=== PATIENT | female | born 1970 | race African-American/Black ===

== ENCOUNTER 2019-09-19 07:34 | Inpatient (IN) | payer BC, OTHER ==
--- NOTE | 2019-09-17 10:09 | NUR ---
*-* CASE MANAGEMENT NOTES *-* PRECERT REF# [id number] 1DAY LOS CPT 12702 NCM UNASSIGNED PLS FAX CLINICALS TO [phone] PER IRIS REP [phone] CALL REF# [id number]
[2019-09-19] VITALS (15 sets, daily range): BP systolic 102–136; BP diastolic 56–84
[~2019-09-19] VITALS: Ht 157.5 cm; Wt 80.9 kg
[~2019-09-19 07:34] MED LIST: NS Irrig 1000ml ONE; Sterile Water Irrig 1000ml IRRIG ONE; cefOXitin Sod 2 GM in D5W 110 ML IVPB ONE
[2019-09-19] MEDS ORDERED: IRON 100 PLUS1 EACH PO (08:22)
[2019-09-19] MEDS ORDERED: AMARYL1 MG ORAL (08:22)
[2019-09-19] MEDS ORDERED: METFORMIN HCL500 M1 ORAL (08:22)
[2019-09-19] MEDS ORDERED: fentaNYL 100 mcg/2 mL IV ONE (08:28)
[2019-09-19] MEDS ORDERED: Midazolam 2mg/2ml Inj ONE (08:29)
[2019-09-19] MEDS ORDERED: Propofol 200mg/20ml IV ONE (08:32)
[2019-09-19] MEDS ORDERED: Lidocaine 1% MPF 10mg/ml 5ml ONE (08:32)
[2019-09-19] MEDS ORDERED: Rocuronium Bromide 50mg/5ml Inj IV ONE (09:19)
[2019-09-19] MEDS ORDERED: Succinylcholine 20mg/ml 10ml vial ONE (09:19)
[2019-09-19] MEDS ORDERED: Ropivacaine 5mg/ml Vial 30ml INJ ONE (09:28)
[2019-09-19] MEDS ORDERED: Duramorph PF 5mg/10ml amp ONE (09:29)
--- NOTE | 2019-09-19 10:04 | NUR ---
CASE MANAGEMENT:REVIEW 49 YR OLD FEMALE HERE FOR ELECTIVE SURGERY SI: UTERINE FIBROIDS 97.5 87 16 136/84 100% ON RA IS: TO SURGERY FOR: HYSTERECTOMY W/BILATERAL SALPINGECTOMY : CURRENTLY IN SURGERY INTERQUAL CRITERIA MET
[2019-09-19] MEDS ORDERED: LR 1000ml 1,000 ML IVLG SCH (10:32)
--- NOTE | 2019-09-19 10:32 | Anethesia Preoperative Eval ---
Anesthesia Pre-op PMH/ROS General Date of Evaluation: Sep 19, 2019 Time of Evaluation: 09:20 Anesthesiologist: Dario ASA Score: ASA 2 Mallampati Score Class I : Soft palate, uvula, fauces, pillars visible Class II: Soft palate, uvula, fauces visible Class III: Soft palate, base of uvula visible Class IV: Only hard plate visible Mallampati Classification: Class II Surgeon: Shellie Diagnosis: Symptomatic uterine fibroids Surgical Procedure: Abdominal hysterectomy Anesthesia History: none Family History: no anesthesia problems Allergies: Coded Allergies: No Known Allergies (Unverified , 09/19/19) Medications: see eMAR Patient NPO?: Yes NPO Date: Sep 18, 2019 NPO Time: 2344 Past Medical History Cardiovascular: Denies: HTN, CAD, MS, valve dz, arrhythmia, other Pulmonary: Denies: asthma, COPD, GILLIAN, other Gastrointestinal/Genitourinary: Reports: GERD; Denies: CRI, ESRD, other Neurologic/Psychiatric: Denies: dementia, CVA, depression/anxiety, TIA, other Endocrine: Reports: DM - poorly controled; Denies: hypothyroidism, steroids, other HEENT: Denies: cataract (L), cataract (R), glaucoma, WIYOT (L), WIYOT (R), other Musculoskeletal/Integumentary: Denies: OA, RA, DJD, DDD, edema, other Other: obesity PMH Narrative: as above PSxH Narrative: x4, D&C Anesthesia Pre-op Phys. Exam Physician Exam Last Vital Signs Date Time Temp Pulse Resp B/P (MAP) Pulse Ox O2 Delivery O2 Flow Rate FiO2 09/19/19 08:31 Room Air 09/19/19 08:19 97.5 87 16 136/84 (101) 100 Constitutional: NAD Neurologic: CN 2-12 intact Cardiovascular: RRR, no M/R/G Respiratory: CTA Gastrointestinal: other - obesity Airway Exam Mallampati Score: Class II MO: limited Neck: short ROM: full Teeth: missing, other - mild paradontosis Dentures: no upper, no lower Anesthesia Pre-op A/P Labs see chart Accucheck 271 at admission Urine Test Test 09/19/19 08:00 Urine HCG, Qualitative Negative (NEGATIVE) Studies Pre-op Studies: EKG - SR Risk Assessment & Plan Assessment: ASA 2 Plan: GA with ETT Intrathecal morphine for postop pain control Status Change Before Surgery: No Pre-Antibiotics Drug: Ancef 2gr. Given Within 1 Hr of Incision: Yes Time Given: 10:12 Vinnie Bishop MD Sep 19, 2019 10:32
[2019-09-19] MEDS ORDERED: DiphenhydrAMINE 50mg/ml Inj IVP PRN (10:45)
[2019-09-19] MEDS ORDERED: Ketorolac 30mg Inj IV PRN (10:45)
[2019-09-19] MEDS ORDERED: Acetaminophen (Non formulary) 100 ML IV ONE (10:45)
[2019-09-19] MEDS ORDERED: Hydromorphone 0.5mg/0.5ml inj IVP PRN (10:45)
[2019-09-19] MEDS ORDERED: Meperidine 50mg/ml Inj(FOR RIGORS ONLY) IVP PRN (10:45)
[2019-09-19] MEDS ORDERED: Metoclopramide 10mg/2ml Inj IVP PRN (10:45)
[2019-09-19] MEDS ORDERED: Glycopyrrolate 0.2mg/ml 1ml Vial ONE (11:29)
[2019-09-19] MEDS ORDERED: Ketorolac 30mg Inj ONE (11:29)
[2019-09-19] MEDS ORDERED: HYDROmorphone 1mg/ml Carpuject IVP PRN (12:45)
[2019-09-19] MEDS ORDERED: Zolpidem 5mg tab ORAL PRN (12:45)
--- NOTE | 2019-09-19 12:54 | Immediate Post-Op Evaluation ---
Immediate Post-Op Evalulation Immediate Post-Op Evalulation Procedure: Open supracervical hysterectomy Date of Evaluation: Sep 19, 2019 Time of Evaluation: 12:53 IV Fluids: 1800 Blood Products: none Estimated Blood Loss: 250 Urinary Output: 200 Blood Pressure Systolic: 113 Blood Pressure Diastolic: 63 Pulse Rate: 86 Respiratory Rate: 20 O2 Sat by Pulse Oximetry: 99 Temperature (Fahrenheit): 97.8 Pain Score (1-10): 1 Nausea: No Vomiting: No Complications none Patient Status: reacts, patent, none Hydration Status: adequate Vinnie Bishop MD Sep 19, 2019 12:54
--- NOTE | 2019-09-19 12:57 | Brief Operative Note ---
Immediate Post Operative Note Operative Note Pre-op Diagnosis: Large Uterine Myoma, menorrhagia Procedure: Supracervical Hysterectomy, Bilateral Salpingectomy, Lysis of pelvic adhesions, Enterolysis Post-op Diagnosis: Same, extensive pelvic and bowel adhesions Findings: consistent w/pre-op dx studies Surgeon: Corey Hensley MD Jacker: Violetta Gonzales MD Anesthesiologist: Tayo Bishop MD Anesthesia: general Specimen: yes - Uterus, Right and Left tubes Complications: none Condition: stable Fluids: LR @ 125 ml/hr Estimated Blood Loss: none Drains: none Packing: None Implant(s) used?: No Corey Hensley MD Sep 19, 2019 12:57
[2019-09-19] MEDS ORDERED: Insulin Human Regular 100units/ml 3ml IV SCH (13:00)
--- NOTE | 2019-09-19 14:20 | NUR ---
NURSE NOTES: Patient received from PACU at 1420 via bed on O2 3LNC. Patient sleeping, easily aroused, complains of itching to back. Patient repositioned, removed pad per patient request, will administer Benadryl, see eMAR. IVF (LR at 125 ml/hr) to RH, infusing, without difficulty, site asymptomatic, connected to IV pump. FC draining to gravity, y/cl urine. Lower abdominal dressing and giselle-pad in place. Bilateral SCDs on, neuro intact, wiggles, skin warm, pulses palpable. Patient's mother at bedside. Ice chips provided. Will follow up with lab. Will notify RT for IS. Call light in reach, bed in lowest position, will continue to monitor. Belongings reviewed with patient's mother, belongings at bedside. Addendum: 09/19/19 at 2106 by Charlene Campos RN Instructed patient and mother on diet order, NPO except ice chips and meds. Verbalized understanding.
[2019-09-19 15:50] LABS: HEMATOCRIT 32.3 % (37.0-47.0); HEMOGLOBIN 10.1 G/DL (12.0-16.0); MEAN CORPUSCULAR VOLUME 79 FL (80-99); PLATELET COUNT 298 K/UL (150-450); RED BLOOD COUNT 4.09 M/UL (4.20-5.40); RED CELL DISTRIBUTION WIDTH 18.6 % (11.6-14.8); WHITE BLOOD COUNT 16.9 K/UL (4.8-10.8)
[2019-09-19 15:53] LABS: ANION GAP 6 mmol/L (5-15); BLOOD UREA NITROGEN 9 mg/dL (7-18); CARBON DIOXIDE 27 MMOL/L (21-32); CHLORIDE 104 MMOL/L (98-107); CREATININE 0.8 MG/DL (0.55-1.30); POTASSIUM 4.8 MMOL/L (3.5-5.1); SODIUM 137 MMOL/L (136-145)
[2019-09-19] MEDS: LR 1000ml 1,000 ML IV SCH ×2 (16:00→22:01)
--- NOTE | 2019-09-19 16:00 | NUR ---
NURSE NOTES: Abdominal dressing CDI, instructed patient to use pillow as abdominal splint while performing IS/coughing, verbalized understanding. Ice chips provided, reinforced NPO status.
--- NOTE | 2019-09-19 17:02 | Operative Note - Dictated ---
DATE OF OPERATION: 09/19/2019 PREOPERATIVE DIAGNOSES: Large uterine fibroids and previous multiple sections. POSTOPERATIVE DIAGNOSES: Large uterine fibroids and previous multiple sections plus extensive bowel adhesions and extensive pelvic adhesions. PROCEDURE PERFORMED: Supracervical hysterectomy and bilateral salpingectomy and extensive enterolysis and extensive lysis of pelvic adhesions. SURGEON: Corey Hensley M.D. CLUB CAR ATTENDANT: Violetta Gonzales M.D. ANESTHESIA: General endotracheal. ANESTHESIOLOGIST: Vinnie Bishop M.D. PROCEDURE IN DETAIL: After the appropriate consents were signed, the patient was brought to the operating room, placed on table in supine position. General endotracheal anesthesia was induced without complication. The patient was placed in a dorsal lithotomy position. Perineum, vagina, and abdomen were prepped and draped in the usual fashion for the procedure. The patient was now evaluated and a Pfannenstiel incision was made. The incision was carried through the subcutaneous tissue. The incision was made in the way that the previous incision was excised. The procedure then continued with identifying the fascia, although the fascial layer was very attenuated and with openings along the fascial layer. At this time, the fascia was also incised and this was extended bilaterally to expose the rectus muscle. The rectus muscle was also with extensive adhesions to both the fascia and the peritoneum. At this time, the fascia was reflected away from the rectus muscle with difficulty. In this time, the abdomen was entered sharply and there were other significant number of omental and bowel adhesions extending to the right abdominal wall and laying in the way of additional dissection. These adhesions were gradually removed to allow full visualization in the pelvis. Once this was completed, the uterus was finally visualized and grasped with Susi clamps and retracted into the incision. There were additional bowel adhesions from the small bowel to the uterine fundus, which were gradually . At this point, the uterus well visualized. Round ligaments on the right side were grasped, cut, and suture ligated. The same was repeated on the left side. The broad ligament was now entered and a large zeppelin clamp was placed along the uretero-ovarian ligament and this area was double clamped. The utero-ovarian was clamped and suture ligated. The same was repeated on the left side where the utero-ovarian ligament was smaller and the tissue was somewhat easier to manipulate. At this time, the uterine vessels on both sides could be visualized. After additional skeletonization, the uterines were clamped, cut, and suture ligated on the right side and the same was repeated on the left. At this time, the cervix was fully visualized with the bladder flap developed and the bladder pushed down below the cervix. At this time, the patient was once again evaluated for any additional bleeding and when none was found, the uterus was extirpated by transecting the cervix. The cervix also contained several fibroids, which were removed after cervical transaction to extirpate the uterus. Once the cervix was fully visualized, then the uterus was passed off the field. The procedure then continued with suturing the cervical stump and making sure no other fibroids were left in the cervical stump. When this was completed, the cervical stump was fully hemostatic. At this time, the attention was turned to the left tube. The ovary was removed away from the tube and using cautery, the entire tube was transected to be removed from the field. The same procedure was performed on the right with the tube fully removed from the field. At this time, the pelvis was once again visualized. There were several small areas of bleeding, which were controlled. At this time, the pelvis was closed using 2-0 Vicryl suture at the peritoneal and muscle layers. This layer was closed en bloc due to extensive adhesions. Once this was closed, the fascia was closed using 0 Vicryl suture bilaterally. The subcutaneous tissue was now closed with 3-0 plain suture. The skin was closed with stainless steel leroy. The patient was now evaluated. Everything was fully hemostatic. She was awakened from general anesthesia and brought to the recovery room after the dressing was placed. The patient tolerated the procedure very well. Corey Hensley M.D. DR: CESAR JOB#: [id number] CC:
--- NOTE | 2019-09-19 18:50 | NUR ---
NURSE NOTES: Dr. Hensley notified of lab results and patient complains of itching/requesting more Benadryl. No new orders for PRN itching. Bedside glucose monitoring and oral hypoglycemic home medication ordered due to DM and Glucose on labs 247 mg/dl. Will endorse to next shift.
--- NOTE | 2019-09-19 19:05 | NUR ---
NURSE NOTES: Received report from GREER Chang, patient is stable A/Ox4, breaths even regular, on O2 via NC at 3L/Min, denies any pain ex except itching , i.v fluids on R hand , 20g patent with I.v fluids running and asymptomatic, Howard catheter draining. family by the bed side, will continue to monitor
--- NOTE | 2019-09-19 19:20 | NUR ---
HAND-OFF: Report given to Destiny BUTTERFIELD. Endorsed new orders for Bedside Glucose Monitoring every 4 hours and Amaryl/Metformin PO.
[2019-09-19] MEDS: Glimepiride 1mg tab ORAL SCH (21:16)
[2019-09-19] MEDS: metFORMIN 500mg tab ORAL SCH (21:16)
--- NOTE | 2019-09-19 21:45 | NUR ---
NURSE NOTES: Family member communicated that patient wants to try and ambulate , reenforced teaching about importance on Splinting abd with pillow while getting up. Yellow socks provide and story writer raised HOB. patient c/o back pain. Patient sat at the edge of the bed and assessed patient, patient continued to c/o back pain and dizziness , patient also started c/o of nausea. Patient encouraged to lay back down , assisted patient in laying position. Re assessed patient pain and its at 6/10, pain meds provided, vitals BP 133/82 P100 RR 21 O2sat 95 with O2 at 3lmin via nc . will continue to monitor.
[2019-09-20] VITALS: BP 113/74
[2019-09-20 04:00] VITALS: BP 120/74
[2019-09-20] MEDS ORDERED: Ketorolac 30mg Inj IV PRN (06:00)
[2019-09-20 06:13] LABS: EOSINOPHILS % (AUTO) 0.8 % (0.0-3.0); HEMATOCRIT 30.2 % (37.0-47.0); HEMOGLOBIN 9.3 G/DL (12.0-16.0); LYMPHOCYTES % (AUTO) 20.3 % (20.0-45.0); MEAN CORPUSCULAR VOLUME 79 FL (80-99); NEUTROPHILS % (AUTO) 72.9 % (45.0-75.0); PLATELET COUNT 260 K/UL (150-450); RED BLOOD COUNT 3.82 M/UL (4.20-5.40); RED CELL DISTRIBUTION WIDTH 18.9 % (11.6-14.8); WHITE BLOOD COUNT 8.5 K/UL (4.8-10.8)
[2019-09-20 06:29] LABS: ANION GAP 5 mmol/L (5-15); BLOOD UREA NITROGEN 8 mg/dL (7-18); CARBON DIOXIDE 28 MMOL/L (21-32); CHLORIDE 104 MMOL/L (98-107); CREATININE 0.6 MG/DL (0.55-1.30); PHOSPHORUS 3.2 MG/DL (2.5-4.9); POTASSIUM 4.2 MMOL/L (3.5-5.1); SODIUM 137 MMOL/L (136-145)
[2019-09-20] MEDS: LR 1000ml 1,000 ML IV SCH ×2 (06:45→16:09)
--- NOTE | 2019-09-20 07:49 | NUR ---
HAND-OFF: Report given to GREER Valdez.
[2019-09-20 08:04] VITALS: BP 116/74
--- NOTE | 2019-09-20 08:04 | NUR ---
NURSE NOTES: Patient awake, alert x4; on Nasal Cannula 3 Liter, no sing of distress and shortness of breath; no sign of chest pain; IV Right-Hand 20G LR running at 125cc; side rails up x2, breaks engaged, bed at lowest position; call light within reach; will keep monitoring.
[2019-09-20] MEDS: metFORMIN 500mg tab ORAL SCH ×2 (09:23→18:43)
[2019-09-20] MEDS: Glimepiride 1mg tab ORAL SCH ×2 (09:23→18:43)
--- NOTE | 2019-09-20 09:48 | 48 Hour Post Anesthesia Eval ---
Post Anesthesia Evaluation Procedure: Open supracervical hysterectomy Date of Evaluation: Sep 20, 2019 Time of Evaluation: 09:47 Blood Pressure Systolic: 116 0: 72 Pulse Rate: 78 Respiratory Rate: 20 Temperature (Fahrenheit): 97.6 O2 Sat by Pulse Oximetry: 98 Airway: patent Nausea: No Vomiting: No Pain Intensity: 3 Hydration Status: adequate Cardiopulmonary Status: stable Mental Status/LOC: patient returned to baseline Follow-up Care/Observations: n/a Post-Anesthesia Complications: none Follow-up care needed: N/A Vinnie Bishop MD Sep 20, 2019 09:48
[2019-09-20 12:00] VITALS: BP 120/77
[2019-09-20] MEDS ORDERED: LR 1000ml ONE (15:28)
[2019-09-20 15:52] VITALS: BP 117/77
--- NOTE | 2019-09-20 15:57 | General Progress Note ---
Progress Note Progress Note S/P Supracervical Hysterectomy, Bilateral Salpingectomy PPD #1 Tmax 101.4 Reports nausea, has not been getting Toradol Plan: 1. Toradol q 6 hrs scheduled 2. CBC, CMP in am 3. Hold diet at clear liquids 4. Ambulation discussed Corey Hensley MD Sep 20, 2019 15:57
[2019-09-20] MEDS: Ketorolac 30mg Inj IV SCH ×2 (16:09→21:26)
--- NOTE | 2019-09-20 16:57 | NUR ---
CASE MANAGEMENT: REVIEW SI: SYMPTOMATIC UTERINE FIBROIDS SUPRACERVICAL HYSTERECTOMY . BILATERAL SALPINGECTOMY 09/19 T 101.4 HR 109 RR 20 BP 120/77 SAT 94% ROOM AIR H/H 9.3/30.2 GLUCOSE 161 IS: TORADOL 30MG IV Q6HR LR IVF @125ML/HR METFORMIN PO BID GLIMEPIRIDE PO BID CLEAR LIQUID PO DIET MED/SURG STATUS DCP: PATIENT IS FROM HOME
[2019-09-20] MEDS ORDERED: Ketorolac 30mg Inj IV SCH (18:00)
--- NOTE | 2019-09-20 19:48 | NUR ---
HAND-OFF: Report given to GREER Drummond.
[2019-09-20 20:00] VITALS: BP 140/84
--- NOTE | 2019-09-20 20:02 | NUR ---
NURSE NOTES: Received report from AM GREER Valdez. Patient is sleeping on bed. No distress noted. No SOB on 3L of oxygen via NC. LR running to right hand IV. Site is intact and asymptomatic. I/S at bedside, SCDs off. Bed in low and locked position with call light within reach. Family at bedside. Will continue to monitor.
[2019-09-21] VITALS: BP 145/85
[2019-09-21] MEDS: LR 1000ml 1,000 ML IV SCH ×3 (01:17→15:38)
[2019-09-21 04:00] VITALS: BP 155/90
[2019-09-21] MEDS: Ketorolac 30mg Inj IV SCH ×4 (04:20→21:17)
[2019-09-21 05:47] LABS: BASOPHILS % (AUTO) 0.9 % (0.0-2.0); EOSINOPHILS % (AUTO) 4.6 % (0.0-3.0); HEMATOCRIT 27.6 % (37.0-47.0); HEMOGLOBIN 8.6 G/DL (12.0-16.0); LYMPHOCYTES % (AUTO) 22.4 % (20.0-45.0); MEAN CORPUSCULAR VOLUME 79 FL (80-99); MONOCYTES % (AUTO) 6.1 % (1.0-10.0); PLATELET COUNT 249 K/UL (150-450); RED BLOOD COUNT 3.49 M/UL (4.20-5.40); RED CELL DISTRIBUTION WIDTH 19.2 % (11.6-14.8)
[2019-09-21 06:13] LABS: ALANINE AMINOTRANSFERASE 15 U/L (12-78); ALBUMIN 2.4 G/DL (3.4-5.0); ALBUMIN/GLOBULIN RATIO 0.6 (1.0-2.7); ALKALINE PHOSPHATASE 57 U/L (46-116); ANION GAP 3 mmol/L (5-15); ASPARTATE AMINO TRANSFERASE 16 U/L (15-37); BLOOD UREA NITROGEN 8 mg/dL (7-18); CALCIUM 8.1 MG/DL (8.5-10.1); CARBON DIOXIDE 32 MMOL/L (21-32); CHLORIDE 103 MMOL/L (98-107); CREATININE 0.6 MG/DL (0.55-1.30); POTASSIUM 3.5 MMOL/L (3.5-5.1); SODIUM 138 MMOL/L (136-145)
--- NOTE | 2019-09-21 07:46 | NUR ---
HAND-OFF: Report given to GREER Soliz. Patient stable.
[2019-09-21 08:00] VITALS: BP 136/77
--- NOTE | 2019-09-21 08:00 | NUR ---
NURSE NOTES: Received report from Bhanu RN, pt a/a/o x4 laying in bed with no signs of distress or other issues at this time. surgical incision open to air with leroy dry and intact. IV on the Left FA gauge #22 running LR@125ml/hr. mother at bedside. call light within reach. bed in lowest position. side rales up x2. I will f/u as needed.
[2019-09-21] MEDS: metFORMIN 500mg tab ORAL SCH ×2 (08:20→17:36)
[2019-09-21] MEDS: Glimepiride 1mg tab ORAL SCH ×2 (08:20→17:36)
[2019-09-21 12:00] VITALS: BP 156/86
--- NOTE | 2019-09-21 12:14 | General Progress Note ---
Progress Note Progress Note POD #2 Tolerating PO liquids - better today Reduced nausea, no vomiting Glu control better today on PO agents Afebrile today Pain = MUCH improved on Toradol CBC = WBCs improved, Ios are elevated Will consider dc to home tomorrow Corey Hensley MD Sep 21, 2019 12:14
[2019-09-21] MEDS: HYDROcodone/Acetamin 5/325 tab ORAL PRN (13:34)
[2019-09-21 16:00] VITALS: BP 118/87
--- NOTE | 2019-09-21 19:20 | NUR ---
HAND-OFF: Report given to Bhanu BUTTERFIELD, pt in stable condition. pt complained of nausea. Zofran Given as indicated by MD. - Dr. Hensley is aware.
[2019-09-21 20:00] VITALS: BP 146/86
--- NOTE | 2019-09-21 20:06 | NUR ---
NURSE NOTES: Report given by GREER Soliz. Patient is resting in bed. C/o headache and nausea. Medication given per eMAR order. Liane jennifer and lemon ordered from cafeteria. She is on room air with no c/o SOB. Abdominal leroy show no bleeding and are intact. Bed in low and locked position. Call light within reach. Family at bedside, will continue to monitor.
[2019-09-22] VITALS: BP 124/75
[2019-09-22] MEDS: LR 1000ml 1,000 ML IV SCH ×3 (00:24→16:26)
[2019-09-22 04:00] VITALS: BP 157/88
[2019-09-22] MEDS: Ketorolac 30mg Inj IV SCH ×3 (04:00→16:00)
--- NOTE | 2019-09-22 07:34 | NUR ---
HAND-OFF: Report given to GREER Waters. Patient is stable.
[2019-09-22 08:00] VITALS: BP 126/78
[2019-09-22] MEDS: Glimepiride 1mg tab ORAL SCH ×2 (08:23→17:43)
[2019-09-22] MEDS: HYDROcodone/Acetamin 5/325 tab ORAL PRN (08:24)
[2019-09-22] MEDS: metFORMIN 500mg tab ORAL SCH ×2 (08:25→17:44)
[2019-09-22 12:00] VITALS: BP 160/92
--- NOTE | 2019-09-22 12:16 | NUR ---
NURSE NOTES: phoned to report chronic headache . Dr Hensley informed that pt was given, [place], with Reglan prior to administration, Made aware of elevated blood pressure at 160/75, baseline blood pressure read off as well as low hemoglobin, rbc, hematocrit. Gave orders for cbc and chem 12 stat. Pt will be updated on Dr thomas
[2019-09-22 12:58] LABS: EOSINOPHILS % (AUTO) 8.2 % (0.0-3.0); LYMPHOCYTES % (AUTO) 23.4 % (20.0-45.0); MEAN CORPUSCULAR VOLUME 79 FL (80-99); MONOCYTES % (AUTO) 5.6 % (1.0-10.0); NEUTROPHILS % (AUTO) 61.8 % (45.0-75.0); PLATELET COUNT 304 K/UL (150-450); RED BLOOD COUNT 3.66 M/UL (4.20-5.40); RED CELL DISTRIBUTION WIDTH 18.9 % (11.6-14.8); WHITE BLOOD COUNT 6.3 K/UL (4.8-10.8)
[2019-09-22 13:11] LABS: ALANINE AMINOTRANSFERASE 15 U/L (12-78); ALBUMIN 2.6 G/DL (3.4-5.0); ALBUMIN/GLOBULIN RATIO 0.6 (1.0-2.7); ALKALINE PHOSPHATASE 55 U/L (46-116); ANION GAP 4 mmol/L (5-15); ASPARTATE AMINO TRANSFERASE 14 U/L (15-37); BILIRUBIN,TOTAL 0.8 MG/DL (0.2-1.0); BLOOD UREA NITROGEN 6 mg/dL (7-18); CALCIUM 8.8 MG/DL (8.5-10.1); CARBON DIOXIDE 30 MMOL/L (21-32); CHLORIDE 104 MMOL/L (98-107); CREATININE 0.7 MG/DL (0.55-1.30); POTASSIUM 3.9 MMOL/L (3.5-5.1); SODIUM 141 MMOL/L (136-145)
--- NOTE | 2019-09-22 15:30 | NUR ---
CASE MANAGEMENT:REVIEW 09/22/19 SI:POD # 3 S/P SUPRACERVICAL HYSTERECTOMY . BILATERAL SALPINGECTOMY 97.3 80 20 160/92 98% ON RA H/H-9.0/29.0 IS: IV TORADOL Q6HRS IVF@125/HR NORCO PO Q4HRS PRN : MED/SURG STATUS 3 EAST PLAN: C/O HEADACHE REMAINS ON CLEAR LIQUID
--- NOTE | 2019-09-22 15:33 | NUR ---
NURSE NOTES: Dr Hensley called to report labs NNO at this time
[2019-09-22] MEDS ORDERED: LR 1000ml ONE (15:48)
[2019-09-22 16:00] VITALS: BP 123/71
[2019-09-22] MEDS: HYDROcodone/Acetamin 10/325 tab ORAL PRN ×2 (16:26→22:35)
--- NOTE | 2019-09-22 18:39 | NUR ---
NURSE NOTES: Per Dr Hensley Tramdadol can cause headache. Tramadol held [place] given with Zofran to prevent nausea. Heating pad placed behind neck and abdomen verbalized effectiveness. Pt made aware that Dr Hensley will be coming to see pt today . Informed that headaches may also be related to pattern of high blood pressure. " [facility] [place] [facility]" Encouraged to purchase an over the counter blood pressure cuff to assess blood pressure more frequently. Verbalized understanding
--- NOTE | 2019-09-22 18:52 | NUR ---
NURSE NOTES: No concerns with nausea , nausea medication before pain medication
[2019-09-22] MEDS: Acetaminophen 500mg (ES) tab ORAL SCH (19:15)
--- NOTE | 2019-09-22 19:17 | NUR ---
HAND-OFF: Report given to Maxime BUTTERFIELD made aware that Dr Hensley is here and is currently changing orders. Diet is going to be upgraded, .
--- NOTE | 2019-09-22 19:26 | General Progress Note ---
Progress Note Progress Note POD #3 BP elevated to 160/90 likely 2nd to NSAID Will reduce to Ibuprofen 400 q 8 hr Pain Control Add Tylenol scheduled 500 q 6 hrs Ambulate Will consider dc to home in AM if stable, afebrile Corey Hensley MD Sep 22, 2019 19:26
[2019-09-22 20:00] VITALS: BP 158/90
--- NOTE | 2019-09-22 20:02 | NUR ---
NURSES NOTE: Met pt in bed, A/OX4, pt is communicative and able to express needs. Denies headache, N/V at this time. No outward s/s noted. Breathing pattern is even and unlabored on RA. Surgical site, lower abdomen is clean, dry, intact with leroy. Diet being advanced to regular. L 22 gauge forearm IV is intact, patent with no s/s of infiltration or infection. Running Lactated Ringers at 125cc/hr. All due meds will be given. Bed at lowest level, call light within reach. Pt will continue to be monitored.
[2019-09-23] VITALS: BP 150/84
--- NOTE | 2019-09-23 03:50 | NUR ---
NURSES NOTE: Lactated Ringers D/C per order. L forearm Iv hep locked. [place] 10-325mg and Zofran 4mg given at apprx 2230 for pain 8/10 in abdomen. BP continues to be monitored as well as headaches and nausea.
[2019-09-23 04:00] VITALS: BP 150/90
[2019-09-23] MEDS: Acetaminophen 500mg (ES) tab ORAL SCH ×5 (06:00→23:43)
--- NOTE | 2019-09-23 07:30 | NUR ---
HAND OFF: Report given to edgard Waters. Pt left in stable condition.
--- NOTE | 2019-09-23 07:54 | NUR ---
NURSE NOTES: Pt has not had a BM since Sunday day of surgery. Abdomen distended. Pt states her incision feels heavier than previous days. Incision is slightly swollen leroy are open to air . Charge Nurse made aware. Pt states after she was given [place] she felt " not herself" Will continue to monitor
[2019-09-23 08:00] VITALS: BP 147/84
[2019-09-23 08:30] LABS: EOSINOPHILS % (AUTO) 8.5 % (0.0-3.0); HEMATOCRIT 25.8 % (37.0-47.0); HEMOGLOBIN 8.3 G/DL (12.0-16.0); LYMPHOCYTES % (AUTO) 25.6 % (20.0-45.0); MEAN CORPUSCULAR VOLUME 79 FL (80-99); MONOCYTES % (AUTO) 4.5 % (1.0-10.0); NEUTROPHILS % (AUTO) 60.4 % (45.0-75.0); PLATELET COUNT 335 K/UL (150-450); RED BLOOD COUNT 3.28 M/UL (4.20-5.40); RED CELL DISTRIBUTION WIDTH 18.5 % (11.6-14.8); WHITE BLOOD COUNT 5.7 K/UL (4.8-10.8)
[2019-09-23] MEDS: metFORMIN 500mg tab ORAL SCH ×2 (09:00→18:01)
[2019-09-23] MEDS: Glimepiride 1mg tab ORAL SCH ×2 (09:00→18:01)
[2019-09-23] MEDS: Milk of Magnesia 30ml Ud ORAL PRN (09:42)
--- NOTE | 2019-09-23 11:31 | NUR ---
NURSE NOTES: Dr Hensley called to follow upon pt well doing. Pt states she is in more pain today, and site feels heavy. Pt does not have a fever , nor has her blood pressure elevated . Pt encouraged to walk . request a follow up call at 1pm
--- NOTE | 2019-09-23 11:48 | NUR ---
NURSE NOTES: Pt walking with mother walking in a slow position. Addendum: 09/23/19 at 1153 by Evelin Farley RN slow stride
[2019-09-23 12:00] VITALS: BP 147/89
[2019-09-23] MEDS: HYDROcodone/Acetamin 5/325 tab ORAL PRN ×2 (12:31→21:52)
--- NOTE | 2019-09-23 15:13 | NUR ---
NURSE NOTES: Dr Hensley called to report pt increase in pain, is unable to decipher it is surgical site or gas. Mylanta offered but since it is liquid form it was refused. Awaiting Dr Hensley return call , pt states she feels worse than yesterday
[2019-09-23 16:00] VITALS: BP 137/79
[2019-09-23] MEDS ORDERED: Tums 500mg ORAL PRN (17:30)
--- NOTE | 2019-09-23 18:04 | General Progress Note ---
Progress Note Progress Note GYNECOLOGY PROGRESS NOTE - POD#4 Patient having more pain today, however also reporting distention and only small flatus. She did not ambulate much yesterday due to elevations in her blood pressure, and her pain medication regimen was adjusted to reduce the risk of exacerbation to her existing hypertension. She is currently sitting up in bed , eating, and appears somewhat uncomfortable but is able to move about without assistance and is tolerating PO without nausea or vomiting. Vitals: Reviewed, BP 140s/80s, afebrile, pulse 70s Exam: Gen: NAD HEENT: OP clear, MMM CV: No tachycardia Pulm: No increased work of breathing Abd: Soft, moderately distended without significant tympany, no rebound, leroy c/d/i and incision healing well without any surrounding erythema or exudate Pelvic: Internal exam deferred, no active bleeding Ext: No calf TTP Labs: Test 09/21/19 05:00 09/22/19 12:35 09/23/19 07:45 White Blood Count 7.0 K/UL (4.8-10.8) 6.3 K/UL (4.8-10.8) 5.7 K/UL (4.8-10.8) Red Blood Count 3.49 M/UL (4.20-5.40) 3.66 M/UL (4.20-5.40) 3.28 M/UL (4.20-5.40) Hemoglobin 8.6 G/DL (12.0-16.0) 9.0 G/DL (12.0-16.0) 8.3 G/DL (12.0-16.0) Hematocrit 27.6 % (37.0-47.0) 29.0 % (37.0-47.0) 25.8 % (37.0-47.0) Mean Corpuscular Volume 79 FL (80-99) 79 FL (80-99) 79 FL (80-99) Mean Corpuscular Hemoglobin 24.7 PG (27.0-31.0) 24.7 PG (27.0-31.0) 25.2 PG (27.0-31.0) Mean Corpuscular Hemoglobin Concent 31.2 G/DL (32.0-36.0) 31.2 G/DL (32.0-36.0) 32.1 G/DL (32.0-36.0) Red Cell Distribution Width 19.2 % (11.6-14.8) 18.9 % (11.6-14.8) 18.5 % (11.6-14.8) Platelet Count 249 K/UL (150-450) 304 K/UL (150-450) 335 K/UL (150-450) Mean Platelet Volume 6.6 FL (6.5-10.1) 6.7 FL (6.5-10.1) 6.6 FL (6.5-10.1) Neutrophils (%) (Auto) 66.0 % (45.0-75.0) 61.8 % (45.0-75.0) 60.4 % (45.0-75.0) Lymphocytes (%) (Auto) 22.4 % (20.0-45.0) 23.4 % (20.0-45.0) 25.6 % (20.0-45.0) Monocytes (%) (Auto) 6.1 % (1.0-10.0) 5.6 % (1.0-10.0) 4.5 % (1.0-10.0) Eosinophils (%) (Auto) 4.6 % (0.0-3.0) 8.2 % (0.0-3.0) 8.5 % (0.0-3.0) Basophils (%) (Auto) 0.9 % (0.0-2.0) 1.0 % (0.0-2.0) 1.0 % (0.0-2.0) Sodium Level 138 MMOL/L (136-145) 141 MMOL/L (136-145) Potassium Level 3.5 MMOL/L (3.5-5.1) 3.9 MMOL/L (3.5-5.1) Chloride Level 103 MMOL/L (98-107) 104 MMOL/L (98-107) Carbon Dioxide Level 32 MMOL/L (21-32) 30 MMOL/L (21-32) Anion Gap 3 mmol/L (5-15) 4 mmol/L (5-15) Blood Urea Nitrogen 8 mg/dL (7-18) 6 mg/dL (7-18) Creatinine 0.6 MG/DL (0.55-1.30) 0.7 MG/DL (0.55-1.30) Estimat Glomerular Filtration Rate > 60 mL/min (>60) > 60 mL/min (>60) Glucose Level 129 MG/DL (74-106) 188 MG/DL (74-106) Calcium Level 8.1 MG/DL (8.5-10.1) 8.8 MG/DL (8.5-10.1) Total Bilirubin 1.0 MG/DL (0.2-1.0) 0.8 MG/DL (0.2-1.0) Aspartate Amino Transf (AST/SGOT) 16 U/L (15-37) 14 U/L (15-37) Alanine Aminotransferase (ALT/SGPT) 15 U/L (12-78) 15 U/L (12-78) Alkaline Phosphatase 57 U/L (46-116) 55 U/L (46-116) Total Protein 6.2 G/DL (6.4-8.2) 6.8 G/DL (6.4-8.2) Albumin 2.4 G/DL (3.4-5.0) 2.6 G/DL (3.4-5.0) Globulin 3.8 g/dL 4.2 g/dL Albumin/Globulin Ratio 0.6 (1.0-2.7) 0.6 (1.0-2.7) 49yo POD#4 s/p supracervical hysterectomy and bilateral salpingectomy, hospital course complicated by exacerbation of HTN, and worsening pain over the last 24h - Given her worsening pain, recommend overnight observation with likely discharge home tomorrow if her pain is well controlled - Continue current inpatient care per Dr. Hensley - No signs of infection or acute abdomen, no fever/chills, no leukocytosis, incision is c/d/i - Pain is likely due to distention and incisional pain - Recommend ambulation and treat gas pain prn Dr. Hensley to assess patient tomorrow and decide if discharge home is appropriate. Signed: MD Janet Steiner Carla M.D. Sep 23, 2019 18:04
--- NOTE | 2019-09-23 19:13 | NUR ---
NURSE NOTES: Dr Gonzales here earlier in shift assessed incision site states it is healing well. [place] to left and right edge came out. aware. Stated leroy will come out tomorrow. Ambulated several sat up on chair,. Abdomen is distended order available for TUMS, since pt does not tolerate fluid medications. Has pending discharge for tomorrow. Pt stated she did not sleep well Endorsed to oncoming nurse that pt has Ambien available. Continues to express that abdomen feels heavy per Dr Gonzales that sensation is expected. No fever this shift, labs were within same baseline from previous day with exception of Eosinophils Dr Hensley aware . Call light in reach
--- NOTE | 2019-09-23 19:18 | NUR ---
HAND-OFF: Report given to Scarlet BUTTERFIELD .
[2019-09-23 20:00] VITALS: BP 140/82
--- NOTE | 2019-09-23 21:59 | NUR ---
NURSE NOTE: Pt is A/Ox4 with stable VS. Female relative is at the bedside. Orders reviewed and physical assessment completed. Suprapubic leroy are clean, dry, and intact. Pt demonstrated proper IS usage, 1500mL achieved. SCD's are off while pt is ambulating in the room. Call tavares is within reach, will continue to monitor and follow plan of care.
[2019-09-24 00:06] VITALS: BP 135/85
[2019-09-24] MEDS: HYDROcodone/Acetamin 5/325 tab ORAL PRN (03:58)
[2019-09-24 04:00] VITALS: BP 165/92
[2019-09-24 04:38] VITALS: BP 164/83
[2019-09-24] MEDS: Acetaminophen 500mg (ES) tab ORAL SCH ×2 (05:57→12:11)
--- NOTE | 2019-09-24 07:30 | NUR ---
NURSE NOTES: Patient is in bed awake and able to verbalize needs. Stable. Denies pain or SOB. Patient encouraged to use call light for assistance, verbalized understanding. Plan of care discussed with patient. Patient is in bed in locked and lowest position with call light within reach. Will continue to monitor.
[2019-09-24 08:00] VITALS: BP 134/81
[2019-09-24] MEDS: metFORMIN 500mg tab ORAL SCH (09:16)
[2019-09-24] MEDS: Glimepiride 1mg tab ORAL SCH (09:16)
[2019-09-24] MEDS: Milk of Magnesia 30ml Ud ORAL PRN (09:19)
--- NOTE | 2019-09-24 11:30 | NUR ---
NURSE NOTES: Patient ambulated unit with all safety measures provided. Assisted back to bed without incident. Will continue to monitor.
[2019-09-24 12:00] VITALS: BP 147/97
--- NOTE | 2019-09-24 13:38 | NUR ---
CASE MANAGEMENT:REVIEW 09/23/19 SI:POD # 4 S/P SUPRACERVICAL HYSTERECTOMY . BILATERAL SALPINGECTOMY 97.3 80 20 160/92 97% ON RA H/H-8.3/25.8 IS: MOTRIN PO Q8HRS TYLENOL PO Q6HRS IV ZOFRAN Q6HRS PRN METFORMIN PO BID AMARYL PO BID NORCO PO Q4HRS PRN : MED/SURG STATUS 3 EAST PLAN: PAIN MGMT 09/24/19 SI:POD # 5 S/P SUPRACERVICAL HYSTERECTOMY . BILATERAL SALPINGECTOMY 97.4 87 19 147/97 98% ON RA IS: MOTRIN PO Q8HRS TYLENOL PO Q6HRS IV ZOFRAN Q6HRS PRN METFORMIN PO BID AMARYL PO BID NORCO PO Q4HRS PRN : MED/SURG STATUS 3 EAST PLAN: PAIN MGMT
[2019-09-24 15:58] VITALS: BP 156/90
--- NOTE | 2019-09-24 15:58 | NUR ---
NURSE NOTES: Ros removed by Dr. Hensley, tolerated well. Surgical site treated by Dr. Hensley with RN assist. Patient given discharge instructions by Dr. Hensley, patient and patient's mother verbalized understanding. Patient's follow up appointment discussed with Dr. Hensley. Surgical site care instructions given to patient by Dr. Hensley. Patient refused prescriptions for home medications and pain medications. Dr. Hensley informed RN to discharge patient home without prescriptions. Will discharge patient as ordered.
--- NOTE | 2019-09-24 17:30 | NUR ---
NURSE NOTES: Patient discharged home as ordered. Stable. Denies pain or SOB. Patient has all written discharge instructions and information. Patient and patient's mother verbalized understanding. Patient has all belongings. Patient's family member arrived to shredder picker patient. Patient has no prescriptions. No IV access. Skin is clean, dry, and intact. Surgical site clean, dry, and intact. Patient assisted downstairs by staff without incident.
--- NOTE | 2019-09-25 10:34 | Discharge Summary ---
Discharge Summary Hospital Course Date of Admission Sep 19, 2019 at 07:34 Date of Discharge Sep 24, 2019 at 17:30 Admitting Diagnosis large uterine fibroids Reason for Hospitalization: elective surgery HPI Valente Resendiz is a 49 year old female who was admitted on Sep 19, 2019 at 07:34 for Uterine Fibroids Procedures s/p 09/19/[address] Dewayne Hensley Supracervical hysterectomy and bilateral salpingectomy and extensive enterolysis and extensive lysis of pelvic adhesions. Hospital Course patient admitted and undergone on 09/19 supracervical hysterectomy and bilateral salpingectomy with extensive enterolysis and extensive lysis of pelvic adhesion postoperatively patient developed fever and leukocytosis pain management was addressed patient started on clear liquid diet patient was mobilized and was out of bed as tolerated incentive spirometry encouraged while in the bed antiemetic provided as needed patient tolerated clear liquid noted elevated blood pressure, likely due to NSAID, dose of NSAID was down titrated and Tylenol was added for pain control patient ambulated without difficulty voided freely diet was advanced to regular bowel regimen instituted patient continued to have pain, likely due to distention and incisional pain gas pain was treated pain was eventually controlled with intermittent Tylenol and ibuprofen patient tolerated regular diet , voided without difficulty , ambulated incision clean , dry, and intact patient patient was stable for discharge home discharge instruction provided outpatient follow-up with surgeon in the office FINAL DIAGNOSES Large uterine fibroids History of previous multiple sections Extensive bowel adhesions and extensive pelvic adhesions s/p supracervical hysterectomy and bilateral salpingectomy and extensive enterolysis and extensive lysis of pelvic adhesions. Discharge Medications Continued Medications: Glimepiride* (Amaryl*) 1 Mg Tablet 2 MG ORAL BID, TAB Iron,Carbonyl/Vit C/Vit B12/Fa (Iron 100 Plus Tablet) 1 Each Tablet 1 EACH PO DAILY, TAB (This prescription has been renewed) Metformin Hcl* (Metformin Hcl*) 500 Mg Tablet 500 MG ORAL TWICE A DAY, TAB (This prescription has been renewed) Discharge Condition Upon Discharge: stable Discharge Disposition Patient was discharged home Discharge Instructions Discharge Instructions Special Instructions I have been assigned to complete a D/C Summary on this account. I was not involved in the patient management Radha Perez NP Sep 25, 2019 10:34
== END 2019-09-24 17:30 | disposition home or self-care (01) | DRG 743 ==
LOC: SDSOVERFLO 07:34 → 3E 14:20
DX: D25.9 Leiomyoma of uterus, unspecified (principal); N99.4 Postprocedural pelvic peritoneal adhesions; I10 Essential (primary) hypertension
CPT/HCPCS: 36415; 80048; 80053; 81025; 82330; 82962; 84100; 85007; 85025; 86850; 86900; 86901; 87081; 94003; 94150; J2250; J2405